=== PATIENT | male | born 1945 | race Asian ===

== ENCOUNTER 2018-02-18 17:54 | Inpatient (IN) | payer MEDICARE, MEDICAID ==
[~2018-02-18] VITALS: Ht 157.5 cm; Wt 78.0 kg
[2018-02-18 18:47] LABS: Basophils # (auto) 0.1 uL; Basophils % (auto) 1.1 % (0.0-2.0); Eosinophils # (auto) 0 uL; Eosinophils % (auto) 0.4 % (0.0-7.0); Hematocrit 42.6 % (41.0-53.0); Hemoglobin 14.7 g/dL (13.5-17.5); Lymphocytes # (auto) 0.4 uL; Lymphocytes % (auto) 8.7 % (10.0-50.0); Mean Corpuscular Hemoglobin 32.5 pg (28.0-32.0); Mean Corpuscular Hgb Conc. 34.5 g/dL (32.0-36.0); Mean Corpuscular Volume 94.2 fL (80.0-100.0); Monocytes # (auto) 0.6 uL; Monocytes % (auto) 12.9 % (0.0-12.0); Neutrophils # (auto) 3.8 uL; Neutrophils % (auto) 76.9 % (37.0-80.0); Nucleated Red Blood Cells % 0.1 %; Platelet Count (auto) 125 10^3/uL (140-450); Red Blood Cells 4.52 10^6/uL (4.5-5.90); Red Cell Distribution Width 12.6 % (11.8-14.3); White Blood Cell 4.9 10^3/uL (4.4-10.8)
[2018-02-18 19:05] LABS: Alanine Aminotransferase 27 U/L (16-61); Albumin 3.7 g/dL (3.4-5.0); Anion Gap 11 (5-15); Aspartate Aminotransferase 22 U/L (15-37); BUN/Creatinine Ratio 18.5; Blood Urea Nitrogen 20 mg/dL (7-18); Calcium 8.5 mg/dL (8.5-10.1); Carbon Dioxide 24 mmol/L (21-32); Chloride 99 mmol/L (98-107); GFR African American 86 mL/min; GFR Non-African American 71 mL/min; Glucose 203 mg/dL (74-106); Potassium 3.8 mmol/L (3.5-5.1); Sodium 134 mmol/L (136-145)
[2018-02-18 19:10] LABS: Alkaline Phosphatase 74 U/L (45-117); Bilirubin, Total 0.8 mg/dL (0.2-1.0); Total Protein 7.6 g/dL (6.4-8.2)
[2018-02-18 19:15] LABS: INR 0.95 (0.9-1.15); Partial Thromboplastin Time 28.7 sec (22.64-33.71); Prothrombin Time 10.3 sec (9.37-12.3)
[2018-02-18] MEDS ORDERED: SODIUM CHLORIDE 0.9% 1,000 ML IVB ONE (19:52)
[2018-02-18] MEDS ORDERED: ACETAMINOPHEN 325 MG TAB PO ONE (20:00)
[2018-02-18] MEDS ORDERED: cefTRIAXone 1GM/10ml IVPUSH 10 ML IV ONE (20:15)
[2018-02-18 20:24] LABS: Urine Bacteria NONE SEEN /hpf (None Seen); Urine Blood Negative /uL (Negative); Urine Specific Gravity 1.024 (1.001-1.035); Urine WBC <1 /hpf (0 - 3)
[2018-02-19] VITALS (7 sets, daily range): BP systolic 109–166; BP diastolic 55–85
[2018-02-19] MEDS ORDERED: SODIUM CHLORIDE 0.9% 1,000 ML IV SCH (01:15)
[2018-02-19] MEDS ORDERED: ONDANSETRON HCL 4 MG/2 ML VIAL IV PRN (01:15)
[2018-02-19] MEDS ORDERED: LEVO25TA6 PO (03:47)
[2018-02-19] MEDS ORDERED: CHOL1TAB42 PO (03:47)
[2018-02-19] MEDS ORDERED: METF-370 PO (03:47)
[2018-02-19] MEDS ORDERED: ASPI81CH43 GT (03:47)
[2018-02-19] MEDS: ACETAMINOPHEN 500 MG TAB PO PRN ×3 (05:08→18:33)
[2018-02-19 05:44] LABS: Basophils # (auto) 0 uL; Basophils % (auto) 0.4 % (0.0-2.0); Eosinophils # (auto) 0 uL; Eosinophils % (auto) 0.2 % (0.0-7.0); Hematocrit 40.8 % (41.0-53.0); Hemoglobin 14.5 g/dL (13.5-17.5); Lymphocytes # (auto) 0.4 uL; Lymphocytes % (auto) 8.2 % (10.0-50.0); Mean Corpuscular Hemoglobin 33.3 pg (28.0-32.0); Mean Corpuscular Hgb Conc. 35.6 g/dL (32.0-36.0); Mean Corpuscular Volume 93.8 fL (80.0-100.0); Monocytes # (auto) 0.7 uL; Monocytes % (auto) 13.7 % (0.0-12.0); Neutrophils % (auto) 77.5 % (37.0-80.0); Nucleated Red Blood Cells % 0.1 %; Platelet Count (auto) 103 10^3/uL (140-450); Red Blood Cells 4.35 10^6/uL (4.5-5.90); Red Cell Distribution Width 12.7 % (11.8-14.3); White Blood Cell 5.1 10^3/uL (4.4-10.8)
[2018-02-19 05:56] LABS: Calcium 8.1 mg/dL (8.5-10.1); Potassium 3.6 mmol/L (3.5-5.1)
[2018-02-19] MEDS ORDERED: DEXTROSE (50%) 50ML SYRG IV PRN (13:45)
[2018-02-19] MEDS: SODIUM CHLORIDE 0.9% 1,000 ML IV SCH ×2 (14:57→22:13)
[2018-02-19] MEDS: metroNIDAZOLE 500MG/100ML 100 ML IV SCH ×2 (14:58→22:13)
[2018-02-19] MEDS: ACCU-CHEK COMFORT CURVE STRIP VI SCH ×2 (18:30→21:51)
[2018-02-19] MEDS: InsuLIN REG 1unit/0.01ml Soln (100units/ml) SC SCH ×2 (18:32→22:13)
[2018-02-19] MEDS ORDERED: cefTRIAXone 1GM/10ml IVPUSH 10 ML IV SCH (21:00)
[2018-02-20] MEDS: ACETAMINOPHEN 500 MG TAB PO PRN (04:51)
[2018-02-20 05:29] VITALS: BP 135/68
[2018-02-20 05:57] LABS: Basophils # (auto) 0 uL; Basophils % (auto) 0.3 % (0.0-2.0); Eosinophils # (auto) 0 uL; Eosinophils % (auto) 0.3 % (0.0-7.0); Hematocrit 43.4 % (41.0-53.0); Hemoglobin 15.1 g/dL (13.5-17.5); Lymphocytes # (auto) 0.8 uL; Lymphocytes % (auto) 14.9 % (10.0-50.0); Mean Corpuscular Hemoglobin 32.6 pg (28.0-32.0); Mean Corpuscular Hgb Conc. 34.8 g/dL (32.0-36.0); Mean Corpuscular Volume 93.7 fL (80.0-100.0); Monocytes # (auto) 0.7 uL; Monocytes % (auto) 13.5 % (0.0-12.0); Neutrophils # (auto) 3.9 uL; Nucleated Red Blood Cells % 0.4 %; Platelet Count (auto) 95 10^3/uL (140-450); Red Blood Cells 4.63 10^6/uL (4.5-5.90); Red Cell Distribution Width 12.4 % (11.8-14.3); White Blood Cell 5.5 10^3/uL (4.4-10.8)
[2018-02-20] MEDS: metroNIDAZOLE 500MG/100ML 100 ML IV SCH (06:08)
[2018-02-20] MEDS: ACCU-CHEK COMFORT CURVE STRIP VI SCH ×4 (06:08→21:46)
[2018-02-20] MEDS: InsuLIN REG 1unit/0.01ml Soln (100units/ml) SC SCH ×4 (06:08→21:45)
[2018-02-20 06:22] LABS: Albumin 3.4 g/dL (3.4-5.0); Potassium 3.7 mmol/L (3.5-5.1)
[2018-02-20 06:28] LABS: BUN/Creatinine Ratio 17.4; Calcium 8.3 mg/dL (8.5-10.1); Total Protein 6.9 g/dL (6.4-8.2)
[2018-02-20 06:30] LABS: Bilirubin, Total 0.7 mg/dL (0.2-1.0)
[2018-02-20 09:00] VITALS: BP 126/64
[2018-02-20] MEDS: SODIUM CHLORIDE 0.9% 1,000 ML IV SCH ×3 (10:49→23:15)
[2018-02-20 13:00] VITALS: BP 153/76
[2018-02-20] MEDS ORDERED: LORazepam 2MG/ML-1ML VIAL IV PRN ×2 (14:00→20:00)
[2018-02-20] MEDS ORDERED: VANCOMYCIN PER PHARMACY 0 MG IV SCH (14:15)
[2018-02-20] MEDS: CEFTRIAXONE SODIUM 2 GM in D5W 5% 50 ML IV SCH (16:29)
[2018-02-20] MEDS ORDERED: ACETAMINOPHEN 650 MG RECT SUPP PR ONE (16:30)
[2018-02-20] MEDS: ACYCLOVIR SOD 50MG/ML 800 MG in SODIUM CHL 0.9% 250 ML IV SCH (16:46)
[2018-02-20 17:00] VITALS: BP 152/89
[2018-02-20 17:14] LABS: Urine Bacteria NONE SEEN /hpf (None Seen); Urine Blood TRACE /uL (Negative); Urine Specific Gravity 1.013 (1.001-1.035); Urine WBC 1 /hpf (0 - 3)
[2018-02-20] MEDS: VANCOMYCIN 1GM/250ML 250 ML IV SCH ×2 (18:00→18:22)
[2018-02-20 22:00] VITALS: BP 107/63
[2018-02-20] MEDS ORDERED: ACYCLOVIR SODIUM (50 MG/ ML) 10 ML VIAL IV ONE (23:32)
[2018-02-21] MEDS: ACYCLOVIR SOD 50MG/ML 800 MG in SODIUM CHL 0.9% 250 ML IV SCH ×4 (00:08→23:47)
[2018-02-21] MEDS: CEFTRIAXONE SODIUM 2 GM in D5W 5% 50 ML IV SCH (02:35)
[2018-02-21 05:30] VITALS: BP 137/65
[2018-02-21 05:52] LABS: Basophils # (auto) 0 uL; Basophils % (auto) 0.5 % (0.0-2.0); Eosinophils # (auto) 0 uL; Eosinophils % (auto) 0.6 % (0.0-7.0); Hematocrit 40.6 % (41.0-53.0); Hemoglobin 14.3 g/dL (13.5-17.5); Lymphocytes # (auto) 0.7 uL; Lymphocytes % (auto) 15.7 % (10.0-50.0); Mean Corpuscular Hgb Conc. 35.1 g/dL (32.0-36.0); Mean Corpuscular Volume 93.9 fL (80.0-100.0); Monocytes # (auto) 0.6 uL; Monocytes % (auto) 13.2 % (0.0-12.0); Neutrophils # (auto) 3.3 uL; Nucleated Red Blood Cells % 0.1 %; Platelet Count (auto) 87 10^3/uL (140-450); Red Blood Cells 4.33 10^6/uL (4.5-5.90); Red Cell Distribution Width 12.5 % (11.8-14.3); White Blood Cell 4.7 10^3/uL (4.4-10.8)
[2018-02-21 06:16] LABS: Calcium 7.9 mg/dL (8.5-10.1); Potassium 3.8 mmol/L (3.5-5.1)
[2018-02-21 06:26] LABS: BUN/Creatinine Ratio 15.4; Bilirubin, Total 0.4 mg/dL (0.2-1.0); Total Protein 6.2 g/dL (6.4-8.2)
[2018-02-21] MEDS: ACCU-CHEK COMFORT CURVE STRIP VI SCH ×4 (06:26→21:59)
[2018-02-21] MEDS: InsuLIN REG 1unit/0.01ml Soln (100units/ml) SC SCH ×4 (06:26→21:58)
[2018-02-21 08:00] VITALS: BP 137/71
[2018-02-21 09:00] VITALS: BP 137/71
[2018-02-21] MEDS: HYDROcodone-ACET 5/325MG TAB PO PRN ×2 (09:04→16:02)
[2018-02-21] MEDS: SODIUM CHLORIDE 0.9% 1,000 ML IV SCH ×3 (09:05→23:47)
[2018-02-21 16:53] VITALS: BP 141/68
[2018-02-21] MEDS: TAMSULOSIN HYDROCHLORIDE 0.4 MG CAP PO SCH (18:01)
[2018-02-21] MEDS: ACETAMINOPHEN 325 MG TAB PO PRN (18:33)
[2018-02-21 21:49] VITALS: BP 123/66
[2018-02-22 05:05] VITALS: BP 129/70
[2018-02-22 05:52] LABS: Basophils # (auto) 0 uL; Basophils % (auto) 0.3 % (0.0-2.0); Eosinophils # (auto) 0 uL; Eosinophils % (auto) 0.5 % (0.0-7.0); Hematocrit 39.5 % (41.0-53.0); Hemoglobin 13.9 g/dL (13.5-17.5); Lymphocytes # (auto) 0.6 uL; Lymphocytes % (auto) 12.2 % (10.0-50.0); Mean Corpuscular Hemoglobin 32.3 pg (28.0-32.0); Mean Corpuscular Hgb Conc. 35.1 g/dL (32.0-36.0); Mean Corpuscular Volume 91.9 fL (80.0-100.0); Monocytes # (auto) 0.5 uL; Neutrophils # (auto) 3.5 uL; Nucleated Red Blood Cells % 0.1 %; Platelet Count (auto) 91 10^3/uL (140-450); Red Cell Distribution Width 12.4 % (11.8-14.3); White Blood Cell 4.6 10^3/uL (4.4-10.8)
[2018-02-22 06:08] LABS: Potassium 3.7 mmol/L (3.5-5.1)
[2018-02-22 06:16] LABS: Albumin 2.8 g/dL (3.4-5.0); BUN/Creatinine Ratio 14.5; Calcium 7.6 mg/dL (8.5-10.1); Cholesterol 147 mg/dL (< 200); HDL Cholesterol 28 mg/dL (40-59); LDL Cholesterol 110 mg/dL (< 100); Triglycerides 123 mg/dL (< 150)
[2018-02-22 06:17] LABS: Bilirubin, Total 0.8 mg/dL (0.2-1.0); Total Protein 6.2 g/dL (6.4-8.2)
[2018-02-22] MEDS: ACCU-CHEK COMFORT CURVE STRIP VI SCH ×4 (06:17→21:20)
[2018-02-22] MEDS: InsuLIN REG 1unit/0.01ml Soln (100units/ml) SC SCH ×4 (06:17→21:20)
[2018-02-22 08:00] VITALS: BP 121/64
[2018-02-22] MEDS: ACYCLOVIR SOD 50MG/ML 800 MG in SODIUM CHL 0.9% 250 ML IV SCH ×2 (08:05→16:24)
[2018-02-22] MEDS: SODIUM CHLORIDE 0.9% 1,000 ML IV SCH ×2 (12:32→16:45)
[2018-02-22 13:00] VITALS: BP 137/70
[2018-02-22 16:56] LABS: Urine Bacteria NONE SEEN /hpf (None Seen); Urine Blood 3+ /uL (Negative); Urine Specific Gravity 1.018 (1.001-1.035); Urine WBC 3 /hpf (0 - 3)
[2018-02-22 17:00] VITALS: BP 148/72
[2018-02-22] MEDS: ACETAMINOPHEN 325 MG TAB PO PRN (17:22)
[2018-02-22] MEDS: TAMSULOSIN HYDROCHLORIDE 0.4 MG CAP PO SCH (17:46)
[2018-02-22 22:10] VITALS: BP 119/56
[2018-02-22] MEDS ORDERED: cefTRIAXone 1GM/10ml IVPUSH 10 ML IV ONE (22:30)
[2018-02-23] MEDS: ACYCLOVIR SOD 50MG/ML 800 MG in SODIUM CHL 0.9% 250 ML IV SCH ×4 (00:12→23:35)
[2018-02-23] MEDS: SODIUM CHLORIDE 0.9% 1,000 ML IV SCH ×3 (00:12→17:31)
[2018-02-23 06:02] VITALS: BP 140/66
[2018-02-23] MEDS: InsuLIN REG 1unit/0.01ml Soln (100units/ml) SC SCH ×4 (06:18→21:26)
[2018-02-23] MEDS: ACCU-CHEK COMFORT CURVE STRIP VI SCH ×5 (06:19→21:26)
[2018-02-23 06:21] LABS: Basophils # (auto) 0 uL; Basophils % (auto) 0.6 % (0.0-2.0); Eosinophils # (auto) 0 uL; Eosinophils % (auto) 1.2 % (0.0-7.0); Hematocrit 37.5 % (41.0-53.0); Hemoglobin 13.3 g/dL (13.5-17.5); Lymphocytes # (auto) 0.6 uL; Lymphocytes % (auto) 14.9 % (10.0-50.0); Mean Corpuscular Hemoglobin 32.5 pg (28.0-32.0); Mean Corpuscular Hgb Conc. 35.4 g/dL (32.0-36.0); Mean Corpuscular Volume 91.9 fL (80.0-100.0); Monocytes # (auto) 0.5 uL; Neutrophils % (auto) 72.3 % (37.0-80.0); Nucleated Red Blood Cells % 0.1 %; Platelet Count (auto) 106 10^3/uL (140-450); Red Blood Cells 4.08 10^6/uL (4.5-5.90); Red Cell Distribution Width 12.1 % (11.8-14.3); White Blood Cell 4.1 10^3/uL (4.4-10.8)
[2018-02-23 06:22] LABS: Potassium 3.8 mmol/L (3.5-5.1)
[2018-02-23 06:31] LABS: Albumin 2.7 g/dL (3.4-5.0); BUN/Creatinine Ratio 13.9; Calcium 7.8 mg/dL (8.5-10.1)
[2018-02-23 06:34] LABS: Bilirubin, Total 0.6 mg/dL (0.2-1.0); Total Protein 5.9 g/dL (6.4-8.2)
[2018-02-23 09:00] VITALS: BP 129/65
[2018-02-23] MEDS: cefTRIAXone 1GM/10ml IVPUSH 10 ML IV SCH ×2 (09:19→21:00)
[2018-02-23 13:00] VITALS: BP 106/67
[2018-02-23 17:00] VITALS: BP 140/69
[2018-02-23] MEDS: TAMSULOSIN HYDROCHLORIDE 0.4 MG CAP PO SCH (17:30)
[2018-02-23 21:41] VITALS: BP 146/77
[2018-02-24] MEDS: SODIUM CHLORIDE 0.9% 1,000 ML IV SCH ×2 (01:54→10:13)
[2018-02-24 05:00] VITALS: BP 134/69
[2018-02-24] MEDS: ACCU-CHEK COMFORT CURVE STRIP VI SCH ×4 (06:04→21:26)
[2018-02-24] MEDS: InsuLIN REG 1unit/0.01ml Soln (100units/ml) SC SCH ×4 (06:04→21:26)
[2018-02-24 08:00] VITALS: BP 141/71
[2018-02-24] MEDS: ACYCLOVIR SOD 50MG/ML 800 MG in SODIUM CHL 0.9% 250 ML IV SCH (08:06)
[2018-02-24 09:37] LABS: Basophils # (auto) 0 uL; Basophils % (auto) 0.5 % (0.0-2.0); Eosinophils # (auto) 0.1 uL; Eosinophils % (auto) 2.3 % (0.0-7.0); Hematocrit 36.6 % (41.0-53.0); Hemoglobin 12.8 g/dL (13.5-17.5); Lymphocytes # (auto) 0.7 uL; Lymphocytes % (auto) 14.1 % (10.0-50.0); Mean Corpuscular Hemoglobin 32.2 pg (28.0-32.0); Monocytes # (auto) 0.5 uL; Monocytes % (auto) 10.9 % (0.0-12.0); Neutrophils # (auto) 3.5 uL; Neutrophils % (auto) 72.2 % (37.0-80.0); Nucleated Red Blood Cells % 0.1 %; Platelet Count (auto) 138 10^3/uL (140-450); Red Blood Cells 3.98 10^6/uL (4.5-5.90); Red Cell Distribution Width 11.9 % (11.8-14.3); White Blood Cell 4.8 10^3/uL (4.4-10.8)
[2018-02-24 09:40] VITALS: BP 141/71
[2018-02-24 09:50] LABS: Albumin 2.6 g/dL (3.4-5.0); BUN/Creatinine Ratio 18.6; Calcium 7.9 mg/dL (8.5-10.1)
[2018-02-24 09:51] LABS: Hepatitis B Surface Antibody Negative
[2018-02-24 09:53] LABS: Bilirubin, Total 0.6 mg/dL (0.2-1.0)
[2018-02-24] MEDS: cefTRIAXone 1GM/10ml IVPUSH 10 ML IV SCH ×2 (10:10→21:03)
[2018-02-24 11:57] VITALS: BP 131/65
[2018-02-24 12:14] LABS: Hepatitis B Surface Antigen Negative (Negative)
[2018-02-24 12:15] LABS: Hepatitis C Antibody Negative (Negative)
[2018-02-24 16:46] VITALS: BP 128/76
[2018-02-24] MEDS: TAMSULOSIN HYDROCHLORIDE 0.4 MG CAP PO SCH (18:01)
[2018-02-24 22:00] VITALS: BP 131/69
[2018-02-25 05:01] VITALS: BP 123/64
[2018-02-25] MEDS: InsuLIN REG 1unit/0.01ml Soln (100units/ml) SC SCH (06:11)
[2018-02-25] MEDS: ACCU-CHEK COMFORT CURVE STRIP VI SCH (06:11)
[2018-02-25 08:00] VITALS: BP 121/58
[2018-02-25 08:06] LABS: Immunoglobulin G, Serum 716 mg/dL (700-1600)
[2018-02-25] MEDS: cefTRIAXone 1GM/10ml IVPUSH 10 ML IV SCH (08:43)
== END 2018-02-25 10:10 | disposition home or self-care (01) | DRG 871 ==
LOC: ER 17:54 → TELE 17:55 → TELE-WESTW 02-19 02:23 → WEST WING 02-24 10:33
PROVIDERS: ADMIT Nurse Practitioner Family; ATTEND Internal Medicine
DX: A41.9 Sepsis, unspecified organism (principal); J18.9 Pneumonia, unspecified organism; D69.6 Thrombocytopenia, unspecified; E11.51 Type 2 diabetes mellitus with diabetic peripheral angiopathy without gangrene; E11.65 Type 2 diabetes mellitus with hyperglycemia; K76.0 Fatty (change of) liver, not elsewhere classified; E87.1 Hypo-osmolality and hyponatremia; E86.0 Dehydration; E03.9 Hypothyroidism, unspecified; F17.200 Nicotine dependence, unspecified, uncomplicated; K59.00 Constipation, unspecified; R31.9 Hematuria, unspecified; I10 Essential (primary) hypertension; N40.1 Benign prostatic hyperplasia with lower urinary tract symptoms; R32 Unspecified urinary incontinence; R63.4 Abnormal weight loss; Z79.82 Long term (current) use of aspirin; Z68.31 Body mass index [BMI] 31.0-31.9, adult
CPT/HCPCS: 36415; 70450; 70551; 71045; 71046; 72141; 72146; 74176; 76700; 80048; 80053; 80061; 80202; 81001; 82550; 82784; 82962; 83036; 83605; 83615; 84484; 85025; 85610; 85652; 85730; 86038; 86141; 86706; 86803; 87040; 87070; 87086; 87205; 87340; 87804; 93005; 93923; 94761; 96361; 96374; 96376; J0696; J1815; J3490; J7060